=== PATIENT | male | born 1930 | race Two or more races ===

== ENCOUNTER 2020-09-24 09:38 | Inpatient (IN) | payer OTHER ==
[~2020-09-24] VITALS: Ht 180.3 cm; Wt 81.6 kg
[2020-09-24] MEDS ORDERED: [UNRECOGNIZED DRUG - OTHER] (10:22)
[2020-09-24] MEDS ORDERED: BRIMONIDINE 0.2% (10:23)
[2020-09-24] MEDS ORDERED: [UNRECOGNIZED DRUG - OTHER] (10:24)
[2020-09-24] MEDS ORDERED: CARDURA1 MG (10:25)
[2020-09-24] MEDS ORDERED: CARVEDILOL3.125 MG (10:26)
[2020-09-24] MEDS ORDERED: CALCIUM500 M1 (10:26)
[2020-09-24] MEDS ORDERED: IRON18 MG (10:27)
[2020-09-24] MEDS ORDERED: LEVOCARNITINE (10:29)
[2020-09-24] MEDS ORDERED: COZAAR50 MG (10:29)
[2020-09-24] MEDS ORDERED: PRADAXA75 MG ×2 (10:29→10:30)
[2020-09-24] MEDS ORDERED: SYNTHROID88 MCG (10:31)
[2020-09-24] MEDS ORDERED: FOSAMAX70 MG (10:32)
[2020-09-24] MEDS ORDERED: TURMERIC 500 M1 EACH (10:32)
[2020-09-24] MEDS ORDERED: EPOETIN ALFA (10:33)
== END 2020-10-03 08:21 | disposition expired | DRG 291 ==
LOC: ER 09:38 → MEDJ 13:57 → MEDI 13:57 → MEDJ 16:44 → SURH 09-25 11:45 → MEDJ 09-25 11:57 → MEDI 09-25 17:08
PROVIDERS: ADMIT Internal Medicine; ATTEND Internal Medicine
PROC: 8E0ZXY6 Isolation (ICD-10-PCS; principal; 2020-09-24)
PROC: BW21ZZZ Computerized Tomography (CT Scan) of Abdomen and Pelvis (ICD-10-PCS; 2020-09-24)
PROC: CB2YYZZ Tomographic (Tomo) Nuclear Medicine Imaging of Respiratory System using Other Radionuclide (ICD-10-PCS; 2020-09-24)
PROC: 4A033R1 Measurement of Arterial Saturation, Peripheral, Percutaneous Approach (ICD-10-PCS; 2020-09-24)
PROC: B245ZZZ Ultrasonography of Left Heart (ICD-10-PCS; 2020-09-24)
PROC: 4A12X4Z Monitoring of Cardiac Electrical Activity, External Approach (ICD-10-PCS; 2020-09-24)
PROC: 3E0F7SF Introduction of Other Gas into Respiratory Tract, Via Natural or Artificial Opening (ICD-10-PCS; 2020-09-24)
PROC: BW28ZZZ Computerized Tomography (CT Scan) of Head (ICD-10-PCS; 2020-09-24)
PROC: 30233N1 Transfusion of Nonautologous Red Blood Cells into Peripheral Vein, Percutaneous Approach (ICD-10-PCS; 2020-09-25)
PROC: 5A09557 Assistance with Respiratory Ventilation, Greater than 96 Consecutive Hours, Continuous Positive Airway Pressure (ICD-10-PCS; 2020-09-27)
DX: I13.0 Hypertensive heart and chronic kidney disease with heart failure and stage 1 through stage 4 chronic kidney disease, or unspecified chronic kidney disease (principal); I50.23 Acute on chronic systolic (congestive) heart failure; J96.01 Acute respiratory failure with hypoxia; A41.9 Sepsis, unspecified organism; N17.8 Other acute kidney failure; Z20.828 Contact with and (suspected) exposure to other viral communicable diseases; D64.9 Anemia, unspecified; I48.91 Unspecified atrial fibrillation; Z95.0 Presence of cardiac pacemaker; N18.32 Chronic kidney disease, stage 3b; Z66 Do not resuscitate